=== PATIENT | female | born 1965 | race Caucasian/White ===

== ENCOUNTER → 2016-11-25 | Outpatient (CLI) | payer BC ==
[~2016-11-25] MED LIST: FISH OIL 1,0001 EACH PO; IMITREX100 MG PO; THERAGRAN-M1 TAB PO; XANAX0.25 MG PO
== END | disposition disaster alternative care site (69) ==
LOC: GBCOE 07:00
DX: Z12.31 Encounter for screening mammogram for malignant neoplasm of breast (principal); N60.12 Diffuse cystic mastopathy of left breast; N63 Unspecified lump in breast
CPT/HCPCS: G0204; G0279